=== PATIENT | male | born 1970 | race Caucasian/White ===

== ENCOUNTER 2017-01-07 17:11 | Emergency (ER) | payer BC ==
[~2017-01-07 17:11] MED LIST: ADVAIR250 INH; AMB10 PO; CARASPUDL PO; CAT3; CENTRUM TAB1 TAB PO; CORTEF5 PO; CRILL OIL PO; DOK100 MG PO; FERRETTS325 MG PO; FISH-EPA1000 MG PO; KLONO1 PO; LAMICTAL200 MG PO; LEVEMIR SC; LOFIB160 PO; LOFIBRA160 MG PO; MULTIPLE VIT PO; MULTIVITAMIN PO; NICODERM C21 MG/241 TOP; NICODERM C7 MG/24 HR TOP; NOVOLOG SC; OMEGA 3550 MG PO; PANCREASE MT OR; PANCREAZE PO; PCET PO; PERCOCET1 TA4 PO; PHENADOZ12.5 MG PO; PRAVACHOL80 MG PO; PRIN10 PO; PROAIR HFA INH; PROTONIX PO; PROTONIXIV IV; SEROQUEL1C PO; SEROQUEL200 MG PO; SEROQUEL300 MG PO; SPIRIVA INH; TRAZODONE150 MG PO; VALIUM10 MG PO; VIAGRA100 MG PO; VICODINTAB PO; VIOKASE OR; ZOCOR10 PO; [UNRECOGNIZED DRUG - OTHER] PO
== END 2017-01-07 17:29 | disposition home or self-care (01) ==
LOC: ER 17:11
DX: S39.012A Strain of muscle, fascia and tendon of lower back, initial encounter (principal); M25.551 Pain in right hip; Z88.8 Allergy status to other drugs, medicaments and biological substances; Z79.899 Other long term (current) drug therapy; Z79.4 Long term (current) use of insulin; W19.XXXA Unspecified fall, initial encounter
CPT/HCPCS: 72100; 72170; 96372; 99284; J1885